=== PATIENT | female | born 1980 | race Caucasian/White ===

== ENCOUNTER 2017-03-10 19:06 | Emergency (ER) | payer OTHER ==
[2017-03-10] MEDS ORDERED: Ketorolac Tromethamine 30 MG/ML VIAL ONE (19:45)
[2017-03-10] MEDS ORDERED: Acetaminophen/Codeine 30-300mg Tablet ONE (19:48)
== END 2017-03-10 20:17 | disposition home or self-care (01) ==
LOC: ERS 19:06
DX: K02.9 Dental caries, unspecified (principal); K03.81 Cracked tooth; F41.9 Anxiety disorder, unspecified
CPT/HCPCS: 96372; J1885